=== PATIENT | male | born 1985 | race Hispanic/Latino ===

== ENCOUNTER 2022-06-23 22:49 | Emergency (ER) | payer OTHER ==
[~2022-06-23] VITALS: Ht 180.3 cm; Wt 122.9 kg
[2022-06-24] MEDS ORDERED: CLOT45CR62 TP (00:12)
[2022-06-24] MEDS ORDERED: METF-444 PO (00:12)
[2022-06-24 00:22] VITALS: BP 142/88
[2022-06-24] MEDS ORDERED: FLUCONAZOLE 100 MG TAB PO ONE (00:30)
== END 2022-06-24 00:33 | disposition home or self-care (01) ==
LOC: EDH 22:49
DX: N47.2 Paraphimosis (principal); L30.8 Other specified dermatitis; N48.89 Other specified disorders of penis; E11.65 Type 2 diabetes mellitus with hyperglycemia
CPT/HCPCS: 82948

== ENCOUNTER 2023-09-01 14:14 | Emergency (ER) | payer OTHER ==
[~2023-09-01] VITALS: Ht 180.3 cm; Wt 122.5 kg
[~2023-09-01 14:14] MED LIST: CLOT45CR62 TP; METF-444 PO
[2023-09-01] MEDS: IBUPROFEN 600 MG TABLET PO ONE (15:00)
[2023-09-01] MEDS ORDERED: NAPR-1196 PO (15:54)
[2023-09-01 15:55] VITALS: BP 132/52; PULSE 74; RESP 20; O2SAT 96
== END 2023-09-01 16:00 ==
LOC: EDH 14:14
DX: S13.9XXA Sprain of joints and ligaments of unspecified parts of neck, initial encounter (principal); I10 Essential (primary) hypertension; Z79.84 Long term (current) use of oral hypoglycemic drugs; Z98.890 Other specified postprocedural states; V89.2XXA Person injured in unspecified motor-vehicle accident, traffic, initial encounter; Y93.I9 Activity, other involving external motion; Y92.488 Other paved roadways as the place of occurrence of the external cause; Y99.8 Other external cause status
CPT/HCPCS: 70450; 72125